=== PATIENT | female | born 1955 | race Caucasian/White ===

== ENCOUNTER → 2024-02-10 14:25 | Outpatient (REF) | payer MEDICARE, OTHER, SELFPAY | LOC: MRI 3T 14:25 | PROVIDERS: ATTENDING PHYSICIAN Neurological Surgery; FAMILY PHYSICIAN Family Medicine | DX: D32.0 Benign neoplasm of cerebral meninges (principal) | CPT/HCPCS: 70553; 73718; A9575 ==

== ENCOUNTER → 2024-02-21 10:02 | Outpatient (REF) | payer MEDICARE, OTHER, SELFPAY | LOC: HWRAD 10:02 | PROVIDERS: ATTENDING PHYSICIAN Podiatrist Foot & Ankle Surgery; FAMILY PHYSICIAN Family Medicine | DX: M19.071 Primary osteoarthritis, right ankle and foot (principal); M19.072 Primary osteoarthritis, left ankle and foot | CPT/HCPCS: 36415; 73630 ==

== ENCOUNTER → 2024-03-16 08:49 | Outpatient (REF) | payer MEDICARE, OTHER, SELFPAY | LOC: HWRAD 08:49 | PROVIDERS: ATTENDING PHYSICIAN Physician Assistant Medical; REFERRING PHYSICIAN Podiatrist Foot & Ankle Surgery | DX: Z00.00 Encounter for general adult medical examination without abnormal findings (principal); M85.80 Other specified disorders of bone density and structure, unspecified site; Z78.0 Asymptomatic menopausal state | CPT/HCPCS: 77063; 77067; 77080 ==

== ENCOUNTER → 2024-06-06 10:38 | Outpatient (REF) | payer MEDICARE, OTHER, SELFPAY | LOC: RAD 10:38 | PROVIDERS: ATTENDING PHYSICIAN Podiatrist Foot & Ankle Surgery; FAMILY PHYSICIAN Physician Assistant Medical | DX: G57.61 Lesion of plantar nerve, right lower limb (principal); M25.571 Pain in right ankle and joints of right foot | CPT/HCPCS: 76882 ==

== ENCOUNTER → 2024-08-02 12:37 | Outpatient (REF) | payer MEDICARE, OTHER, SELFPAY ==
[2024-08-02 12:55] VITALS: BP 124/78; BP_SYST 70
[2024-08-02 14:06] VITALS: BP 126/80; BP_SYST 70
== END ==
LOC: RADI 12:37
PROVIDERS: ATTENDING PHYSICIAN Podiatrist Foot & Ankle Surgery; FAMILY PHYSICIAN Family Medicine
DX: M79.671 Pain in right foot (principal); M67.471 Ganglion, right ankle and foot; M65.871 Other synovitis and tenosynovitis, right ankle and foot
CPT/HCPCS: 20606; 76882

== ENCOUNTER → 2024-08-31 12:29 | Outpatient (REF) | payer MEDICARE, OTHER, SELFPAY | LOC: RAD 12:29 | PROVIDERS: ATTENDING PHYSICIAN Physician Assistant Medical | DX: M79.662 Pain in left lower leg (principal) | CPT/HCPCS: 93971 ==

== ENCOUNTER → 2024-09-20 06:57 | Outpatient (REF) | payer MEDICARE, OTHER, SELFPAY | LOC: PAVMRI 06:57 | PROVIDERS: ATTENDING PHYSICIAN Physician Assistant Medical | DX: M25.511 Pain in right shoulder (principal) | CPT/HCPCS: 73221 ==